=== PATIENT | female | born 1995 | race Caucasian/White ===

== ENCOUNTER 2017-06-10 12:42 | Emergency (ER) | payer OTHER, MEDICAID ==
--- NOTE | 2017-06-10 14:10 | ED Physician Documentation ---
PD HPI BACK PAIN - Stated complaint Stated Complaint: KONG PX-GLF - Chief complaint Chief Complaint: General - History obtained from History obtained from: Patient, Family - History of Present Illness Timing - onset: How many days ago (3) Timing - duration: Days (3) Timing - details: Gradual onset Pain level max: 8 Pain level now: 8 Location: Lower, Left Quality: Pain, Spasm, Aching, Throbbing Associated symptoms: No: Fever, Weakness, Numbness, Incontinent of urine, Unable to urinate, Hematuria, Incontinent of stool Improves with: Rest Worsened by: Movement, Lifting - Additional information Additional information: Tripped and fell down the stairs at work. 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 Pain is left low lumbar, soft tissue. No numbness or tingling. No loss of bowel or bladder control. No IV drug use. No history of similar problems. Review of Systems Constitutional: denies: Fever, Chills GI: denies: Nausea, Vomiting : denies: Dysuria, Frequency, Hesitancy, Unable to Void, Incontinent, Now EGA Neurologic: denies: Focal weakness, Numbness PD PAST MEDICAL HISTORY - Past Medical History Past Medical History: No - Past Surgical History Past Surgical History: No - Present Medications Home Medications: Ambulatory Orders Medication Instructions Recorded Confirmed Cyclobenzaprine [Flexeril] 10 mg PO TID PRN #20 tablet 06/10/17 Hydrocodone/Acetaminophen 1 - 2 each PO Q6H PRN #10 tablet 06/10/17 [Hydrocodon-Acetaminophen 5-325] Meloxicam [Mobic] 7.5 mg PO BID PRN #20 tablet 06/10/17 - Allergies Allergies/Adverse Reactions: Allergies Allergy/AdvReac Type Severity Reaction Status Date / Time No Known Drug Allergies Allergy Verified 06/10/17 12:52 - Social History Does the pt smoke?: Yes Smoking Status: Current every day smoker Does the pt have substance abuse?: No - Immunizations Immunizations are current?: Yes PD ED PE NORMAL - Vitals Vital signs reviewed: Yes - General General: Alert and oriented X 3, No acute distress, Well developed/nourished - HEENT HEENT: Atraumatic, PERRL, Moist mucous membranes - Neck Neck: Supple, no meningeal sign, No bony TTP - Cardiac Cardiac: RRR, Strong equal pulses - Respiratory Respiratory: No respiratory distress, Clear bilaterally - Abdomen Abdomen: Soft, Non tender, Non distended - Back Back: No CVA TTP, No spinal TTP, Other (Paraspinal muscle spasm left lower lumbar. No spinal tenderness over the thoracic, lumbar, sacral or coccyx.) - Derm Derm: Warm and dry - Extremities Extremities: Other (normal bilateral lower extremity patellar and ankle jerk reflexes. Normal great toe extension bilaterally) - Neuro Neuro: Alert and oriented X 3, No motor deficit, No sensory deficit - Psych Psych: Normal mood, Normal affect Results - Vitals Vitals: Vital Signs - 24 hr 06/10/17 06/10/17 12:51 14:26 Temperature 36.4 C L 36.3 C L Heart Rate 89 63 Respiratory 14 18 Rate Blood Pressure 119/69 118/74 O2 Saturation 99 99 Oxygen O2 Source Room air PD MEDICAL DECISION MAKING - ED course Complexity details: considered differential (no cauda equina, no spinal epidural abscess, no fracture, no aortic dissection or evidence of aneursym rupture), d/w patient, d/w family ED course: Patient is a 21-year-old female who presents to the emergency department with left low lumbar spasm and pain. Likely a strain. No bony tenderness to suggest fracture. X-rays held at this time. Will place on pain medication and muscle relaxants for home and follow-up with her PCP. Patient counseled regarding signs and symptoms for which I believe and urgent re-evaluation would be necessary. Patient with good understanding of and agreement to plan and is comfortable going home at this time This document was made in part using voice recognition software. While efforts are made to proofread this document, sound alike and grammatical errors may occur. Departure - Departure Disposition: 01 Home, Self Care Clinical Impression: Lumbar strain Qualifiers: Encounter type: initial encounter Qualified Code(s): S39.012A - Strain of muscle, fascia and tendon of lower back, initial encounter Condition: Good Instructions: ED Sprain Strain Lumbar Follow-Up: Panfilo Coronel DO [Primary Care Provider] - Within 1 week Prescriptions: Cyclobenzaprine [Flexeril] 10 mg PO TID PRN #20 tablet PRN Reason: Spasms Hydrocodone/Acetaminophen [Hydrocodon-Acetaminophen 5-325] 1 - 2 each PO Q6H PRN #10 tablet PRN Reason: pain Meloxicam [Mobic] 7.5 mg PO BID PRN #20 tablet PRN Reason: pain Comments: Continue the medications at home. Return if you worsen. This should improve over the next few days. Do not drink alcohol or drive while on narcotic pain medicine. Note that many narcotic pain relievers also contain tylenol/acetaminophen. Please ensure that your total dose of acetaminophen from all sources does not exceed 3 grams (3000mg) per day. You may constipated on this medication, take a stool softener such as "Colace" twice a day while you are on it. Also recommend a wqzu-[id number]-lwqiicz laxative such as senna or MiraLAX any day that you do not have a bowel movement. If you received narcotic pain medication in the emergency department, do not drive or operate machinery for the next 24 hours. Forms: Activity restrictions Discharge Date/Time: 06/10/17 14:29
[2017-06-10] MEDS: KETOROLAC 60 MG/2 ML VIAL IM STA (14:15)
[2017-06-10] MEDS: CYCLOBENZAPRINE 10 MG TABLET PO STA (14:15)
[2017-06-10] MEDS ORDERED: CYCLOBENZAPRINE 10 MG TABLET PO ONE (14:15)
[2017-06-10] MEDS ORDERED: KETOROLAC 60 MG/2 ML VIAL ONE (14:16)
[2017-06-10 14:27] VITALS: BP 118/74
== END 2017-06-10 14:29 | disposition home or self-care (01) ==
LOC: ED 12:42
DX: S39.012A Strain of muscle, fascia and tendon of lower back, initial encounter (principal); W10.9XXA Fall (on) (from) unspecified stairs and steps, initial encounter; W01.0XXA Fall on same level from slipping, tripping and stumbling without subsequent striking against object, initial encounter; Y99.0 Civilian activity done for income or pay; F17.200 Nicotine dependence, unspecified, uncomplicated
CPT/HCPCS: 1040M; 96372; 99282; 99283

== ENCOUNTER 2017-10-13 13:48 | Emergency (ER) | payer MEDICAID ==
[2017-10-13 13:55] VITALS: BP 136/80
--- NOTE | 2017-10-13 14:35 | ED Physician Documentation ---
PD HPI URI - Stated complaint Stated Complaint: COUGHING BLOOD - Chief complaint Chief Complaint: Heent - History obtained from History obtained from: Patient - History of Present Illness Timing - onset: Other (Sick for about 2 weeks with sore throat, body aches, fevers, and productive cough and developed slight hemoptysis mixed with sputum today.) Review of Systems Constitutional: reports: Chills, Myalgias, Fatigue Ears: denies: Ear pain Nose: reports: Rhinorrhea / runny nose, Congestion Throat: reports: Sore throat PD PAST MEDICAL HISTORY - Past Medical History Past Medical History: No - Past Surgical History Past Surgical History: No - Present Medications Home Medications: Ambulatory Orders Medication Instructions Recorded Confirmed Albuterol Sulfate [Proventil Hfa 1 - 2 puffs IH Q4H PRN #1 10/13/17 Inhaler] [email or web address] Azithromycin [Zithromax] 250 mg PO DAILY #6 tablet 10/13/17 guaiFENesin/CODEINE [Robitussin AC] 5 - 10 ml PO Q6H PRN #120 ml 10/13/17 - Allergies Allergies/Adverse Reactions: Allergies Allergy/AdvReac Type Severity Reaction Status Date / Time lactose Allergy Cramps Verified 10/13/17 13:56 - Social History Does the pt smoke?: Yes Smoking Status: Current every day smoker Does the pt drink ETOH?: No Does the pt have substance abuse?: No - Immunizations Immunizations are current?: Yes - POLST Patient has POLST: No PD ED PE NORMAL - Vitals Vital signs reviewed: Yes - General General: Alert and oriented X 3, No acute distress - HEENT HEENT: PERRL, EOMI, Ears normal, Other (Slight pharyngeal irritation) - Neck Neck: Supple, no meningeal sign, No bony TTP - Cardiac Cardiac: RRR, No murmur - Respiratory Respiratory: No respiratory distress, Clear bilaterally - Abdomen Abdomen: Non tender - Neuro Neuro: Alert and oriented X 3, Normal speech - Psych Psych: Normal mood, Normal affect Results - Vitals Vitals: Vital Signs - 24 hr 10/13/17 13:54 Temperature 36.7 C Heart Rate 110 H Respiratory 20 Rate Blood Pressure 136/80 H O2 Saturation 97 Oxygen O2 Source Room air Departure - Departure Disposition: Home, Self Care Clinical Impression: Bronchitis Condition: Good Record reviewed to determine appropriate education?: Yes Instructions: ED Bronchitis Asthmatic Prescriptions: Albuterol Sulfate [Proventil Hfa Inhaler] 1 - 2 puffs IH Q4H PRN #1 [email or web address] PRN Reason: Cough Azithromycin [Zithromax] 250 mg PO DAILY #6 tablet guaiFENesin/CODEINE [Robitussin AC] 5 - 10 ml PO Q6H PRN #120 ml PRN Reason: Cough Comments: Call your doctor to arrange a follow-up appointment, make the next available appointment. In the interim, return anytime if worse or if new symptoms develop. Your blood pressure was elevated today on check into the emergency department. This does not mean that you have hypertension, it is a common phenomenon to come to the emergency department and have elevated blood pressure. I recommend that you see your primary care physician within the week to have it rechecked when you are feeling better.
== END 2017-10-13 14:42 | disposition home or self-care (01) ==
LOC: ED 13:48
DX: J40 Bronchitis, not specified as acute or chronic (principal); R03.0 Elevated blood-pressure reading, without diagnosis of hypertension; F17.200 Nicotine dependence, unspecified, uncomplicated
CPT/HCPCS: 99283

== ENCOUNTER 2017-11-18 13:45 | Emergency (ER) | payer MEDICAID ==
[2017-11-18 13:56] VITALS: BP 127/76
[2017-11-18 14:03] LABS: BILIRUBIN,URINE NEGATIVE (NEGATIVE); GLUCOSE, URINE (UA) NEGATIVE (NEGATIVE); KETONES,URINE (UA) TRACE mg/dL (NEGATIVE); LEUKOCYTE ESTERASE, URINE NEGATIVE (NEGATIVE); NITRITE,URINE NEGATIVE (NEGATIVE); OCCULT BLOOD,URINE NEGATIVE (NEGATIVE); PROTEIN,URINE NEGATIVE (NEGATIVE); UROBILINOGEN,URINE 0.2 (NORMAL) E.U./dL (NORMAL)
[2017-11-18 14:06] LABS: CLARITY,URINE CLEAR (CLEAR)
[2017-11-18 14:08] LABS: HCG UR QUAL NEGATIVE
[2017-11-18] MEDS ORDERED: DEXAMETHASONE 10 MG/ML VIAL PO STA (14:41)
--- NOTE | 2017-11-18 14:42 | ED Physician Documentation ---
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 She has had similar pain previously but never anything this bad. She has been using a heating pack constantly and she is not getting relief from her pain. She has pain to moving and she has pain radiating down her left leg. She is not having any numbness or tingling or trouble with her bowel or bladder. Review of Systems Constitutional: denies: Fever Eyes: denies: Decreased vision Ears: denies: Ear pain Nose: denies: Congestion Throat: denies: Sore throat Cardiac: denies: Chest pain / pressure Respiratory: denies: Cough GI: denies: Abdominal Pain, Nausea, Vomiting : denies: Dysuria, Frequency Skin: denies: Rash Musculoskeletal: reports: Back pain, Extremity pain (left leg). denies: Neck pain Neurologic: denies: Generalized weakness, Focal weakness, Numbness PD PAST MEDICAL HISTORY - Past Medical History Past Medical History: No - Past Surgical History Past Surgical History: No - Present Medications Home Medications: Ambulatory Orders Medication Instructions Recorded Confirmed Cyclobenzaprine [Flexeril] 10 mg PO TID PRN #20 tablet 11/18/17 HYDROcod/ACETAM 5/325 [[place] 5/325] 1 - 2 ea PO Q6H PRN #15 tablet 11/18/17 - Allergies Allergies/Adverse Reactions: Allergies Allergy/AdvReac Type Severity Reaction Status Date / Time lactose Allergy Cramps Verified 11/18/17 13:56 - Social History Does the pt smoke?: Yes Smoking Status: Current every day smoker Does the pt drink ETOH?: No Does the pt have substance abuse?: No - Immunizations Immunizations are current?: Yes - POLST Patient has POLST: No PD ED PE NORMAL - Vitals Vital signs reviewed: Yes (tachy ) - General General: Alert and oriented X 3, No acute distress, Well developed/nourished, Other (standing favoring the left leg with the leg is full extension and moving slowly. ) - HEENT HEENT: Atraumatic, PERRL - Neck Neck: Supple, no meningeal sign - Respiratory Respiratory: No respiratory distress - Back Back: No CVA TTP, No spinal TTP, Other (There is tenderness to the paraspinous muscles bilaterally at the TL junction.) - Derm Derm: Normal color, Warm and dry, No rash - Extremities Extremities: No deformity, No edema - Neuro Neuro: No motor deficit, No sensory deficit Eye Opening: Spontaneous Motor: Obeys Commands Verbal: Oriented GCS Score: 15 - Psych Psych: Normal mood, Normal affect Results - Vitals Vitals: Vital Signs - 24 hr 11/18/17 13:50 Temperature 36.5 C Heart Rate 102 H Respiratory 16 Rate Blood Pressure 127/76 O2 Saturation 99 Oxygen O2 Source Room air - Labs Labs: Laboratory Tests 11/18/17 13:55 Urine Color YELLOW Urine Clarity CLEAR Urine pH 6.0 Ur Specific [place] >=1.030 H Urine Protein NEGATIVE Urine Glucose (UA) NEGATIVE Urine Ketones TRACE Urine Occult Blood NEGATIVE Urine Nitrite NEGATIVE Urine Bilirubin NEGATIVE Urine Urobilinogen 0.2 (NORMAL) Ur Leukocyte Esterase NEGATIVE Ur Microscopic Review NOT INDICATED Urine Culture Comments NOT INDICATED Urine HCG, Qual NEGATIVE PD MEDICAL DECISION MAKING - ED course Complexity details: considered differential, d/w patient ED course: 22-year-old female with acute back spasm and sciatica has been using a heating pad continuously and has not had relief of her pain. Here in emergency department she is given dexamethasone 10 mg orally I have encouraged her to stop using the heating pack and use ice and stretch to hydrate and we will provide some pain medication and muscle relaxant. Departure - Departure Disposition: 01 Home, Self Care Clinical Impression: Sciatica Qualifiers: Laterality: left Qualified Code(s): M54.32 - Sciatica, left side Condition: Stable Instructions: ED Sciatica Follow-Up: Panfilo Coronel DO [Primary Care Provider] - Prescriptions: Cyclobenzaprine [Flexeril] 10 mg PO TID PRN #20 tablet PRN Reason: Spasms HYDROcod/ACETAM 5/325 [[place] 5/325] 1 - 2 ea PO Q6H PRN #15 tablet PRN Reason: Pain Forms: Activity restrictions
== END 2017-11-18 15:02 | disposition home or self-care (01) ==
LOC: ED 13:45
DX: M54.32 Sciatica, left side (principal); F17.200 Nicotine dependence, unspecified, uncomplicated
CPT/HCPCS: 81001; 81003; 81025; 87086; 99283

== ENCOUNTER 2018-04-05 18:08 | Emergency (ER) | payer MEDICAID ==
[2018-04-05] MEDS ORDERED: diazePAM INJ 5 MG/ML SYRINGE IVP STA (18:46)
--- NOTE | 2018-04-05 18:48 | ED Physician Documentation ---
PD HPI CHEST PAIN - Stated complaint Stated Complaint: CHEST PX - Chief complaint Chief Complaint: Cardiac - History obtained from History obtained from: Patient - History of Present Illness Timing - onset: Today (In the midst of a panic attack she developed substernal chest pressure radiating to the back without shortness of breath. This was about an hour and a half ago. She has panic attacks occasionally but not chest pain like this. She tried Ativan which did not help. She denies any pedal edema or calf pain. No recent travel or personal history of DVT or PE. She has no heart or lung problems. She is a family history of DVT and coronary disease and emphysema, but none of these at such a young age.) Review of Systems Ten Systems: 10 systems reviewed and negative Constitutional: denies: Fever, Chills Cardiac: denies: Palpitations, Pedal edema, Calf pain Respiratory: denies: Dyspnea, Cough, Hemoptysis, Wheezing GI: denies: Abdominal Pain PD PAST MEDICAL HISTORY - Past Medical History Past Medical History: Yes Psych: Depression, Anxiety Musculoskeletal: Scoliosis Other Past Medical History: left torn bicep - Past Surgical History Past Surgical History: No - Present Medications Home Medications: Ambulatory Orders Medication Instructions Recorded Confirmed Cyclobenzaprine [Flexeril] 10 mg PO TID PRN #20 tablet 11/18/17 HYDROcod/ACETAM 5/325 [[place] 5/325] 1 - 2 ea PO Q6H PRN #15 tablet 11/18/17 Doxylamine/Pyridoxine HCl 1 each PO Q6H PRN #20 tablet. 04/05/18 [Adeline Stark 10-10 mg Tablet] - Allergies Allergies/Adverse Reactions: Allergies Allergy/AdvReac Type Severity Reaction Status Date / Time lactose Allergy Cramps Verified 11/18/17 13:56 - Social History Does the pt smoke?: Yes Smoking Status: Current every day smoker Does the pt drink ETOH?: Yes Does the pt have substance abuse?: No - Immunizations Immunizations are current?: Yes - POLST Patient has POLST: No PD ED PE NORMAL - Vitals Vital signs reviewed: Yes - General General: Alert and oriented X 3, Other (She is hyperventilating and tearful) - HEENT HEENT: PERRL, EOMI - Neck Neck: Supple, no meningeal sign, No bony TTP - Cardiac Cardiac: RRR, No murmur - Respiratory Respiratory: No respiratory distress, Clear bilaterally - Abdomen Abdomen: Non tender - Extremities Extremities: No edema, No calf tenderness / cord - Neuro Neuro: Alert and oriented X 3, Normal speech Results - Vitals Vitals: Vital Signs - 24 hr 04/05/18 04/05/18 18:13 19:28 Temperature 36.8 C Heart Rate 113 H 86 Respiratory 18 18 Rate Blood Pressure 129/74 126/70 O2 Saturation 100 97 Oxygen O2 Source Room air - EKG (time done) 1823 Rate: Rate (enter#) (90) Rhythm: NSR Martell: Normal Intervals: Normal [place] QRS: Normal Ischemia: Normal ST segments Computer interpretation: Agree with computer - Labs Labs: Laboratory Tests 04/05/18 04/05/18 04/05/18 18:34 18:34 18:34 WBC 9.6 RBC 4.64 Hgb 13.6 Hct 39.9 MCV 86.2 MCH 29.3 MCHC 34.0 RDW 13.0 Plt Count 289 MPV 6.8 L Neut # (Auto) 5.5 Lymph # (Auto) 3.3 Garrett # (Auto) 0.7 Eos # (Auto) 0.1 Baso # (Auto) 0.1 Absolute Nucleated RBC 0.00 Nucleated RBC % 0.0 D-Dimer < 200.0 L Sodium 137 Potassium 3.4 L Chloride 107 Carbon Dioxide 22 Anion Gap 8.0 BUN 8 Creatinine 0.6 Estimated GFR (MDRD) 125 Glucose 109 H Calcium 9.7 Total Bilirubin 0.6 AST 20 ALT 17 Alkaline Phosphatase 46 Troponin I Total Protein 7.6 Albumin 4.7 Globulin 2.9 Albumin/Globulin Ratio 1.6 Lipase 24 Serum HCG, Qual POSITIVE Urine Color Urine Clarity Urine pH Ur Specific [place] Urine Protein Urine Glucose (UA) Urine Ketones Urine Occult Blood Urine Nitrite Urine Bilirubin Urine Urobilinogen Ur Leukocyte Esterase Ur Microscopic Review Urine Culture Comments Urine Opiates Screen Ur Oxycodone Screen Urine Methadone Screen Ur Propoxyphene Screen Ur Barbiturates Screen Ur Tricyclics Screen Ur Phencyclidine Scrn Ur Amphetamine Screen U Methamphetamines Scrn U Benzodiazepines Scrn Urine Cocaine Screen U Cannabinoids Screen 04/05/18 04/05/18 18:34 19:30 WBC RBC Hgb Hct MCV MCH MCHC RDW Plt Count MPV Neut # (Auto) Lymph # (Auto) Garrett # (Auto) Eos # (Auto) Baso # (Auto) Absolute Nucleated RBC Nucleated RBC % D-Dimer Sodium Potassium Chloride Carbon Dioxide Anion Gap BUN Creatinine Estimated GFR (MDRD) Glucose Calcium Total Bilirubin AST ALT Alkaline Phosphatase Troponin I < 0.04 Total Protein Albumin Globulin Albumin/Globulin Ratio Lipase Serum HCG, Qual Urine Color YELLOW Urine Clarity CLEAR Urine pH >=9.0 H Ur Specific [place] 1.015 Urine Protein NEGATIVE Urine Glucose (UA) NEGATIVE Urine Ketones 15 H Urine Occult Blood NEGATIVE Urine Nitrite NEGATIVE Urine Bilirubin NEGATIVE Urine Urobilinogen 4 H Ur Leukocyte Esterase NEGATIVE Ur Microscopic Review NOT INDICATED Urine Culture Comments NOT INDICATED Urine Opiates Screen NEGATIVE Ur Oxycodone Screen NEGATIVE Urine Methadone Screen NEGATIVE Ur Propoxyphene Screen NEGATIVE Ur Barbiturates Screen NEGATIVE Ur Tricyclics Screen NEGATIVE Ur Phencyclidine Scrn NEGATIVE Ur Amphetamine Screen NEGATIVE U Methamphetamines Scrn NEGATIVE U Benzodiazepines Scrn NEGATIVE Urine Cocaine Screen NEGATIVE U Cannabinoids Screen POSITIVE H - Rads (name of study) 2v chest Radiology: EMP read contemporaneously (normal) PD MEDICAL DECISION MAKING - ED course ED course: 22-year-old woman presents with chest pain that seems like anterior chest wall pain in the setting of panic attack. She was given IV Valium here which helped her anxiety did not really change the pain but she did have improvement with Toradol. She has a somewhat surprisingly positive test here, was counseled about this but other than nausea she has no symptoms directly referable to the itself i.e. no cramping or bleeding or pelvic pain. - Sepsis Event Vital Signs: Vital Signs - 24 hr 04/05/18 04/05/18 18:13 19:28 Temperature 36.8 C Heart Rate 113 H 86 Respiratory 18 18 Rate Blood Pressure 129/74 126/70 O2 Saturation 100 97 Oxygen O2 Source Room air Departure - Departure Disposition: 01 Home, Self Care Clinical Impression: Chest wall pain Qualifiers: Weeks of gestation: less than 8 weeks Qualified Code(s): Z3A.01 - Less than 8 weeks gestation of Condition: Good Record reviewed to determine appropriate education?: Yes Instructions: ED Contusion Chest Wall, ED Care Follow-Up: [facility] [Provider Group] Prescriptions: Doxylamine/Pyridoxine HCl [Adeline Stark 10-10 mg Tablet] 1 each PO Q6H PRN #20 tablet.dr PRN Reason: Nausea / Vomiting Comments: Continue your vitamins and try to quit smoking. Follow-up with the OB is listed on this form for routine care. Return if worsening or if new symptoms develop. Tylenol as needed for pain.
[2018-04-05 18:58] LABS: BASOPHILS # (AUTO) 0.1 10^3/uL (0.0-0.1); BASOPHILS % (AUTO) 0.9 %; EOSINOPHILS # (AUTO) 0.1 10^3/uL (0.0-0.7); EOSINOPHILS % (AUTO) 0.6 %; HGB - HEMOGLOBIN 13.6 g/dL (12.0-16.0); LYMPHOCYTES # (AUTO) 3.3 10^3/uL (1.5-3.5); LYMPHOCYTES % (AUTO) 34.4 %; MEAN CORPUSCULAR HEMOGLOBIN 29.3 pg (27.0-31.0); MEAN CORPUSCULAR VOLUME 86.2 fL (81.0-99.0); MEAN PLATELET VOLUME 6.8 fL (7.9-10.8); MONOCYTES # (AUTO) 0.7 10^3/uL (0.0-1.0); MONOCYTES % (AUTO) 7.2 %; NEUTROPHILS # (AUTO) 5.5 10^3/uL (1.5-6.6); NEUTROPHILS % (AUTO) 56.9 %; PLT - PLATELET COUNT 289 10^3/uL (130-450); RED BLOOD COUNT 4.64 10^6/uL (4.20-5.40); WHITE BLOOD COUNT 9.6 x10^3/uL (4.8-10.8)
[2018-04-05 19:07] LABS: ALBUMIN 4.7 g/dL (3.2-5.5); ALBUMIN/GLOBULIN RATIO 1.6 (1.0-2.2); ALKALINE PHOSPHATASE 46 IU/L (42-121); ALT ALANINE AMINOTRANSFERASE 17 IU/L (10-60); AST ASPARTATE AMINOTRANSFERASE 20 IU/L (10-42); BILIRUBIN,TOTAL 0.6 mg/dL (0.2-1.0); BUN - BLOOD UREA NITROGEN 8 mg/dL (6-20); CALCIUM 9.7 mg/dL (8.5-10.3); CARBON DIOXIDE - CO2 22 mmol/L (21-32); CHLORIDE 107 mmol/L (101-111); CREATININE 0.6 mg/dL (0.4-1.0); GFR - MDRD 125 (>89); GLUCOSE 109 mg/dL (70-100); LIPASE 24 U/L (22-51); SODIUM 137 mmol/L (135-145); TOTAL PROTEIN 7.6 g/dL (6.7-8.2)
--- NOTE | 2018-04-05 19:29 | XRAY Report ---
Procedure Date: 04/05/2018 Accession Number: [id number] / [id number] Procedure: XR - Chest 2 View X-Ray CPT Code: 42367 FULL RESULT: EXAM: CHEST RADIOGRAPHY. EXAM DATE: 04/05/2018 07:17 PM. CLINICAL HISTORY: Chest pain. COMPARISON: None. TECHNIQUE: 2 views. FINDINGS: Lungs/Pleura: No focal opacities evident. No pleural effusion. No pneumothorax. Normal volumes. Bronchial wall thickening noted. Mediastinum: Heart and mediastinal contours are unremarkable. Other: None. IMPRESSION: 1. Nonspecific bronchial wall thickening could represent bronchitis or reactive airways disease. 2. No consolidation, effusions or pneumothorax. RADIA
[2018-04-05 19:33] LABS: MUDS CUTOFF CONCENTRATIONS CUTOFF CONC BELOW:
[2018-04-05 19:39] LABS: BILIRUBIN,URINE NEGATIVE (NEGATIVE); GLUCOSE, URINE (UA) NEGATIVE (NEGATIVE); KETONES,URINE (UA) 15 mg/dL (NEGATIVE); LEUKOCYTE ESTERASE, URINE NEGATIVE (NEGATIVE); NITRITE,URINE NEGATIVE (NEGATIVE); OCCULT BLOOD,URINE NEGATIVE (NEGATIVE); PH,URINE >=9.0 PH (5.0-7.5); PROTEIN,URINE NEGATIVE (NEGATIVE); UROBILINOGEN,URINE 4 E.U./dL (NORMAL)
[2018-04-05] MEDS ORDERED: KETOROLAC 60 MG/2 ML VIAL IVP STA (19:40)
[2018-04-05 19:43] LABS: CLARITY,URINE CLEAR (CLEAR)
[2018-04-05 19:48] LABS: AMPHETAMINE SCREEN,URINE NEGATIVE (NEGATIVE); BENZODIAZEPINES SCREEN, URINE NEGATIVE (NEGATIVE); COCAINE SCREEN URINE NEGATIVE (NEGATIVE); METHADONE SCREEN, URINE NEGATIVE (NEGATIVE); METHAMPHETAMINES SCREEN, URINE NEGATIVE (NEGATIVE); OPIATE SCREEN, URINE NEGATIVE (NEGATIVE); OXYCODONE SCREEN, URINE NEGATIVE (NEGATIVE); PROPOXYPHENE SCREEN, URINE NEGATIVE (NEGATIVE); TRICYCLIC ANTIDEPRESSANT,URINE NEGATIVE (NEGATIVE)
[2018-04-05 19:55] LABS: HCG,QUALITATIVE BLOOD POSITIVE
[2018-04-05 20:09] VITALS: BP 126/84
== END 2018-04-05 20:20 | disposition home or self-care (01) ==
LOC: ED 18:08
DX: R07.89 Other chest pain (principal); F32.9 Major depressive disorder, single episode, unspecified; F41.9 Anxiety disorder, unspecified; O26.891 Other specified pregnancy related conditions, first trimester; R11.0 Nausea; Z3A.01 Less than 8 weeks gestation of pregnancy
CPT/HCPCS: 36415; 71046; 80053; 80306; 81001; 81003; 83690; 84484; 84703; 85025; 85379; 87086; 93005; 96374; 96375; 99283; 99284

== ENCOUNTER 2018-04-13 20:54 | Emergency (ER) | payer MEDICAID ==
[2018-04-13] MEDS ORDERED: METOCLOPRAMIDE 10 MG/2 ML VIAL IVP STA (21:17)
[2018-04-13] MEDS ORDERED: ACETAMINOPHEN 500 MG TABLET PO STA (21:17)
[2018-04-13] MEDS ORDERED: SODIUM CHLORIDE 0.9% 1,000 ML IV ONE (21:17)
--- NOTE | 2018-04-13 21:23 | ED Physician Documentation ---
History of Present Illness - Stated complaint Stated Complaint: 7 WKS/PX ALL OVER - Chief complaint Chief Complaint: Abd Pain - History obtained from History obtained from: Patient - Additonal information Additional information: 22-year-old female 1 para 0 at roughly 7 weeks presents the emergency department with increasing body wide pain, insomnia, pelvic pain and general weakness over the past 5 days which has worsened. The patient denies any focal area of discomfort. The patient reports nausea. No improvement with over-the- counter therapy. The patient denies dysuria, vaginal discharge or vaginal bleeding. No other associated symptoms. No triggering factors Review of Systems Constitutional: reports: Fatigue. 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 Psych: Depression, Anxiety Musculoskeletal: Scoliosis - Past Surgical History Past Surgical History: No - Present Medications Home Medications: Ambulatory Orders Medication Instructions Recorded Confirmed Cyclobenzaprine [Flexeril] 10 mg PO TID PRN #20 tablet 11/18/17 LORazepam [Lorazepam] 0.5 mg PO 04/13/18 Metoclopramide [Reglan] 10 mg PO Q6H PRN #30 tablet 04/13/18 Sertraline [Zoloft] 50 mg PO DAILY 04/13/18 04/13/18 - Allergies Allergies/Adverse Reactions: Allergies Allergy/AdvReac Type Severity Reaction Status Date / Time lactose Allergy Cramps Verified 04/13/18 21:03 - Social History Does the pt smoke?: Yes Smoking Status: Current every day smoker Does the pt drink ETOH?: Yes Does the pt have substance abuse?: No - Immunizations Immunizations are current?: Yes - POLST Patient has POLST: No PD ED PE NORMAL - General General: Alert and oriented X 3, Well developed/nourished - HEENT HEENT: Atraumatic, PERRL, EOMI, Ears normal, Moist mucous membranes - Neck Neck: Supple, no meningeal sign - Cardiac Cardiac: RRR, Strong equal pulses - Respiratory Respiratory: No respiratory distress, Clear bilaterally - Abdomen Abdomen: Normal bowel sounds, Non tender, Non distended - Back Back: No CVA TTP - Extremities Extremities: No deformity, No edema - Neuro Neuro: Alert and oriented X 3, No motor deficit - Psych Psych: Normal mood Results - Vitals Vitals: Vital Signs - 24 hr 04/13/18 21:01 Temperature 37.0 C Heart Rate 79 Respiratory 14 Rate Blood Pressure 115/73 O2 Saturation 100 Oxygen O2 Source Room air - Labs Labs: Laboratory Tests 04/13/18 04/13/18 04/13/18 21:50 22:45 22:45 WBC 9.9 RBC 4.46 Hgb 13.1 Hct 39.2 MCV 88.0 MCH 29.4 MCHC 33.4 RDW 13.4 Plt Count 277 MPV 7.2 L Neut # (Auto) 5.7 Lymph # (Auto) 3.2 Long # (Auto) 0.7 Eos # (Auto) 0.2 Baso # (Auto) 0.1 Absolute Nucleated RBC 0.00 Nucleated RBC % 0.0 Sodium Potassium Chloride Carbon Dioxide Anion Gap BUN Creatinine Estimated GFR (MDRD) Glucose Calcium Total Bilirubin AST ALT Alkaline Phosphatase CK-MB (CK-2) Total Protein Albumin Globulin Albumin/Globulin Ratio Lipase Serum HCG, Qual Urine Color YELLOW Urine Clarity CLEAR Urine pH 6.0 Ur Specific [place] 1.020 Urine Protein NEGATIVE Urine Glucose (UA) NEGATIVE Urine Ketones NEGATIVE Urine Occult Blood NEGATIVE Urine Nitrite NEGATIVE Urine Bilirubin NEGATIVE Urine Urobilinogen 0.2 (NORMAL) Ur Leukocyte Esterase NEGATIVE Ur Microscopic Review NOT INDICATED Urine Culture Comments NOT INDICATED Blood Type A POSITIVE 04/13/18 04/13/18 04/13/18 22:45 22:45 22:45 WBC RBC Hgb Hct MCV MCH MCHC RDW Plt Count MPV Neut # (Auto) Lymph # (Auto) Long # (Auto) Eos # (Auto) Baso # (Auto) Absolute Nucleated RBC Nucleated RBC % Sodium 135 Potassium 4.0 Chloride 101 Carbon Dioxide 25 Anion Gap 9.0 BUN 11 Creatinine 0.6 Estimated GFR (MDRD) 125 Glucose 100 Calcium 9.7 Total Bilirubin 0.4 AST 16 ALT 12 Alkaline Phosphatase 43 CK-MB (CK-2) 0.6 Total Protein 7.3 Albumin 4.2 Globulin 3.1 Albumin/Globulin Ratio 1.4 Lipase 34 Serum HCG, Qual POSITIVE Urine Color Urine Clarity Urine pH Ur Specific [place] Urine Protein Urine Glucose (UA) Urine Ketones Urine Occult Blood Urine Nitrite Urine Bilirubin Urine Urobilinogen Ur Leukocyte Esterase Ur Microscopic Review Urine Culture Comments Blood Type - Rads (name of study) US Radiology: See rad report PD MEDICAL DECISION MAKING - ED course Complexity details: other (On reevaluation the patient is resting comfortably and her symptoms have completely resolved and she feels much improved. The patient's workup does not reveal any acute etiology that would necessitate admission to the hospital or acute surgical consultation. The patient appears appropriate for discharge home and further workup as an outpatient. I discussed with her the findings on her workup and incidental findings. 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 I discussed warning signs and recommended returning to the emergency department immediately for worsening or any concerns) - Sepsis Event Vital Signs: Vital Signs - 24 hr 04/13/18 21:01 Temperature 37.0 C Heart Rate 79 Respiratory 14 Rate Blood Pressure 115/73 O2 Saturation 100 Oxygen O2 Source Room air Departure - Departure Disposition: Home, Self Care Clinical Impression: Abdominal pain affecting Ovarian cyst Qualifiers: Laterality: bilateral Qualified Code(s): N83.201 - Unspecified ovarian cyst, right side Condition: Good Instructions: Care , Cysts Ovarian, ED Pelvic Pain [facility] Follow-Up: [facility] [Provider Group] - Within 1 week Prescriptions: Metoclopramide [Reglan] 10 mg PO Q6H PRN #30 tablet PRN Reason: Nausea / Vomiting Comments: Is return to the emergency department for worsening symptoms or new concerns
[2018-04-13 22:08] LABS: BILIRUBIN,URINE NEGATIVE (NEGATIVE); GLUCOSE, URINE (UA) NEGATIVE (NEGATIVE); KETONES,URINE (UA) NEGATIVE (NEGATIVE); LEUKOCYTE ESTERASE, URINE NEGATIVE (NEGATIVE); NITRITE,URINE NEGATIVE (NEGATIVE); OCCULT BLOOD,URINE NEGATIVE (NEGATIVE); PROTEIN,URINE NEGATIVE (NEGATIVE); UROBILINOGEN,URINE 0.2 (NORMAL) E.U./dL (NORMAL)
[2018-04-13 22:10] LABS: CLARITY,URINE CLEAR (CLEAR)
[2018-04-13 22:56] LABS: BASOPHILS # (AUTO) 0.1 10^3/uL (0.0-0.1); BASOPHILS % (AUTO) 0.6 %; EOSINOPHILS # (AUTO) 0.2 10^3/uL (0.0-0.7); HGB - HEMOGLOBIN 13.1 g/dL (12.0-16.0); LYMPHOCYTES # (AUTO) 3.2 10^3/uL (1.5-3.5); LYMPHOCYTES % (AUTO) 32.1 %; MEAN CORPUSCULAR HEMOGLOBIN 29.4 pg (27.0-31.0); MEAN CORPUSCULAR HGB CONC 33.4 g/dL (32.0-36.0); MEAN PLATELET VOLUME 7.2 fL (7.9-10.8); MONOCYTES # (AUTO) 0.7 10^3/uL (0.0-1.0); MONOCYTES % (AUTO) 7.5 %; NEUTROPHILS # (AUTO) 5.7 10^3/uL (1.5-6.6); NEUTROPHILS % (AUTO) 57.8 %; PLT - PLATELET COUNT 277 10^3/uL (130-450); RED BLOOD COUNT 4.46 10^6/uL (4.20-5.40); RED CELL DISTRIBUTION WIDTH 13.4 % (12.0-15.0); WHITE BLOOD COUNT 9.9 x10^3/uL (4.8-10.8)
[2018-04-13 23:17] LABS: ALBUMIN 4.2 g/dL (3.2-5.5); ALBUMIN/GLOBULIN RATIO 1.4 (1.0-2.2); BILIRUBIN,TOTAL 0.4 mg/dL (0.2-1.0); CALCIUM 9.7 mg/dL (8.5-10.3); CREATININE 0.6 mg/dL (0.4-1.0); TOTAL PROTEIN 7.3 g/dL (6.7-8.2)
--- NOTE | 2018-04-13 23:24 | Ultrasound Report ---
Procedure Date: 04/13/2018 Accession Number: [id number] / [id number] Procedure: US - OB First Trimester CPT Code: FULL RESULT: EXAM: FIRST TRIMESTER OBSTETRIC ULTRASOUND (Less than 11 weeks) EXAM DATE: 04/13/2018 09:48 PM. CLINICAL HISTORY: with pain. LMP: 02/23/2018. COMPARISONS: None. TECHNIQUE: Transabdominal and transvaginal ultrasound examination with static image documentation. CLINICAL DATES: EGA 7 weeks 0 days with REUBEN 12/28/2018 based on LMP. ASSESSMENT: Dichorionic, diamniotic twin . Twin A Location: Right posterior. Gestational Sac: Single intrauterine. Embryo: CRL (crown-rump length) 4.2 mm = 6 weeks 1 day. Cardiac activity: 114 beats per minute. Yolk sac: 2.8 mm. Amniotic fluid: Not accurately assessed at this gestational age. Early placenta: Not visible at this gestational age. Twin B: Location: Left anterior. Gestational Sac: Single intrauterine. Embryo: CRL (crown-rump length) 3.3 mm = 6 weeks 0 days. Cardiac activity: 133 beats per minute. Yolk sac: 2.3 mm. Amniotic fluid: Not accurately assessed at this gestational age. Early placenta: Not visible at this gestational age. Other: Small perigestational hemorrhage inferior and to the left of the gestational sac. MATERNAL STRUCTURES: Uterus: Anteverted. Unremarkable. Cervix: Closed. Right Ovary/Adnexa: Unremarkable. The ovary measures 3.4 x 1.5 x 1.4 cm, volume 2.8 cc. Left Ovary/Adnexa: Unremarkable. The ovary measures 2.2 x 2.3 x 2.3 cm, volume 6 cc. Complex debris-containing 1.3 x 1.3 x 1.8 cm left ovarian cyst with peripheral flow. Free Fluid: None. Other: None. IMPRESSION: 1. Dichorionic, diamniotic twin . heart activity is noted for both. Twin A has an estimated gestational age of 6 weeks 1 day which is concordant with the estimated gestational age based on LMP. Twin B has an estimated gestational age of 6 weeks 0 days which is concordant with the estimated gestational age based on LMP. 2. Assigned dating is REUBEN 11/30/2018 based on LMP. 3. Small perigestational hemorrhage. 4. Both ovaries and adnexa are normal. Left ovarian 1.8 cm corpus luteum. RADIA
[2018-04-13 23:38] LABS: HCG,QUALITATIVE BLOOD POSITIVE
[2018-04-14 00:36] VITALS: BP 116/74
== END 2018-04-14 00:49 | disposition home or self-care (01) ==
LOC: ED 20:54
DX: O34.81 Maternal care for other abnormalities of pelvic organs, first trimester (principal); N83.201 Unspecified ovarian cyst, right side; O99.331 Smoking (tobacco) complicating pregnancy, first trimester; Z3A.01 Less than 8 weeks gestation of pregnancy
CPT/HCPCS: 36415; 76801; 76817; 80053; 81003; 82553; 83690; 84703; 85025; 86900; 86901; 87491; 87591; 96361; 96374; 99283; A9270; J2765; 81001; 87086

== ENCOUNTER 2018-04-17 21:04 | Emergency (ER) | payer MEDICAID ==
[2018-04-17] MEDS ORDERED: diphenhydrAMINE 25 MG CAPSULE PO STA (21:27)
[2018-04-17 21:31] LABS: BILIRUBIN,URINE NEGATIVE (NEGATIVE); GLUCOSE, URINE (UA) NEGATIVE (NEGATIVE); KETONES,URINE (UA) NEGATIVE (NEGATIVE); LEUKOCYTE ESTERASE, URINE NEGATIVE (NEGATIVE); NITRITE,URINE NEGATIVE (NEGATIVE); OCCULT BLOOD,URINE NEGATIVE (NEGATIVE); PH,URINE 7.5 PH (5.0-7.5); PROTEIN,URINE NEGATIVE (NEGATIVE); UROBILINOGEN,URINE 0.2 (NORMAL) E.U./dL (NORMAL)
[2018-04-17 21:40] LABS: BACTERIA,URINE None Seen /HPF (None Seen); CLARITY,URINE CLEAR (CLEAR); RBC,URINE None Seen /HPF (0-5); SQUAMOUS EPITHELIAL CELL,UR RARE Squamous (<= Few)
--- NOTE | 2018-04-17 21:42 | ED Physician Documentation ---
PD HPI MHE - Stated complaint Stated Complaint: ANXIETY/6WK OB - Chief complaint Chief Complaint: MHE - History obtained from History obtained from: Patient, Family - History of Present Illness Primary symptom: Anxiety Timing - onset: Today Contributing factors: Off meds, Other Similar symptoms before: Work up / diagnostics Recently seen: Emergency Dept - Additional information Additional information: Patient is a 22 year old female approximately 6 weeks by dates who is presenting to the emergency department for anxiety and a panic attack. According to patient and friend patient's old roommates and best friend got kicked out of the house and patient had to take them to a hotel. this set off the patient's panic attack. patient normally would take a lorazapam but due to the she can't. 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 Psych: Depression, Anxiety Musculoskeletal: Scoliosis - Past Surgical History Past Surgical History: No - Present Medications Home Medications: Ambulatory Orders Medication Instructions Recorded Confirmed No Known Home Medications [No 04/17/18 04/17/18 Known Home Medications] - Allergies Allergies/Adverse Reactions: Allergies Allergy/AdvReac Type Severity Reaction Status Date / Time lactose Allergy Cramps Verified 04/17/18 21:13 - Social History Does the pt smoke?: Yes Smoking Status: Current every day smoker Does the pt drink ETOH?: Yes Does the pt have substance abuse?: No - Immunizations Immunizations are current?: Yes - POLST Patient has POLST: No PD ED PE NORMAL - Vitals Vital signs reviewed: Yes - HEENT HEENT: Atraumatic - Respiratory Respiratory: No respiratory distress - Abdomen Abdomen: Non distended - Derm Derm: Normal color - Extremities Extremities: No deformity - Neuro Neuro: Alert and oriented X 3, No motor deficit, Normal speech PD ED PE EXPANDED - General General: Alert, Anxious - Psych Psych: Tearful, Anxious Results - Vitals Vitals: Vital Signs - 24 hr 04/17/18 21:12 Temperature 36.8 C Heart Rate 115 H Respiratory 18 Rate Blood Pressure 137/83 H O2 Saturation 100 Oxygen O2 Source Room air - Labs Labs: Laboratory Tests 04/17/18 21:27 Urine Color YELLOW Urine Clarity CLEAR Urine pH 7.5 Ur Specific [place] 1.010 Urine Protein NEGATIVE Urine Glucose (UA) NEGATIVE Urine Ketones NEGATIVE Urine Occult Blood NEGATIVE Urine Nitrite NEGATIVE Urine Bilirubin NEGATIVE Urine Urobilinogen 0.2 (NORMAL) Ur Leukocyte Esterase NEGATIVE Urine RBC None Seen Urine WBC 0-3 Ur Squamous Epith Cells RARE Squamous Urine Bacteria None Seen Urine Culture Comments NOT INDICATED PD MEDICAL DECISION MAKING - ED course Complexity details: reviewed old records, reviewed results, re-evaluated patient , considered differential, d/w patient ED course: patient was seen and examined at bedside. patient was anxious and tearful. urine was collected and patient was treated with benadryl. Upon re-evaluation patient was calm and cooperative. Urinalysis was within normal limits. A lengthy discussion was had with the patient and her partner. All of her questions were answered. Patient required no further work up and was stable for discharge with outpatient follow up. - Sepsis Event Vital Signs: Vital Signs - 24 hr 04/17/18 21:12 Temperature 36.8 C Heart Rate 115 H Respiratory 18 Rate Blood Pressure 137/83 H O2 Saturation 100 Oxygen O2 Source Room air Departure - Departure Disposition: Home, Self Care Clinical Impression: Anxiety Condition: Good Instructions: ED Panic Attack Follow-Up: Pricilla Caceres DO [Provider Admit Priv/Credential] - Comments: Your diagnostics today were within normal limits. there were no significant abnormalities on your urinalysis. During your you will be limited on what you can take for panic attacks. the best things will be exercise and talking with people. you can also try breathing exercises and yoga. If you need to take an occasional benadryl that it ok. you should return to the emergency department for vaginal bleeding, vaginal discharge, chest pain or shortness of breath.
[2018-04-17 22:22] VITALS: BP 101/54
== END 2018-04-17 22:22 | disposition home or self-care (01) ==
LOC: ED 21:04
DX: O99.341 Other mental disorders complicating pregnancy, first trimester (principal); F41.9 Anxiety disorder, unspecified; O99.331 Smoking (tobacco) complicating pregnancy, first trimester; Z3A.01 Less than 8 weeks gestation of pregnancy
CPT/HCPCS: 81001; 99283; A9270; 87086

== ENCOUNTER 2018-05-04 15:27 | Emergency (ER) | payer MEDICAID ==
[2018-05-04 15:33] VITALS: BP 110/61
== END 2018-05-04 16:12 | disposition left against medical advice (07) ==
LOC: ED 15:27
DX: Z53.21 Procedure and treatment not carried out due to patient leaving prior to being seen by health care provider (principal)

== ENCOUNTER 2018-05-08 14:22 | Outpatient (CLI) | payer MEDICAID ==
[2018-05-08 15:11] LABS: BILIRUBIN,URINE NEGATIVE (NEGATIVE); GLUCOSE, URINE (UA) NEGATIVE (NEGATIVE); KETONES,URINE (UA) NEGATIVE (NEGATIVE); LEUKOCYTE ESTERASE, URINE NEGATIVE (NEGATIVE); MUDS CUTOFF CONCENTRATIONS CUTOFF CONC BELOW:; NITRITE,URINE NEGATIVE (NEGATIVE); OCCULT BLOOD,URINE TRACE-INTA (NEGATIVE); PH,URINE 5.5 PH (5.0-7.5); PROTEIN,URINE NEGATIVE (NEGATIVE); UROBILINOGEN,URINE 2 E.U./dL (NORMAL)
[2018-05-08 15:12] LABS: CLARITY,URINE CLEAR (CLEAR)
[2018-05-08 15:17] LABS: BASOPHILS # (AUTO) 0.1 10^3/uL (0.0-0.1); BASOPHILS % (AUTO) 1.3 %; EOSINOPHILS # (AUTO) 0.1 10^3/uL (0.0-0.7); EOSINOPHILS % (AUTO) 0.8 %; LYMPHOCYTES # (AUTO) 1.6 10^3/uL (1.5-3.5); LYMPHOCYTES % (AUTO) 22.1 %; MEAN CORPUSCULAR HGB CONC 34.3 g/dL (32.0-36.0); MEAN CORPUSCULAR VOLUME 84.6 fL (81.0-99.0); MEAN PLATELET VOLUME 7.1 fL (7.9-10.8); MONOCYTES # (AUTO) 0.7 10^3/uL (0.0-1.0); MONOCYTES % (AUTO) 9.3 %; NEUTROPHILS # (AUTO) 4.8 10^3/uL (1.5-6.6); NEUTROPHILS % (AUTO) 66.5 %; PLT - PLATELET COUNT 241 10^3/uL (130-450); RED BLOOD COUNT 4.14 10^6/uL (4.20-5.40); RED CELL DISTRIBUTION WIDTH 12.6 % (12.0-15.0); WHITE BLOOD COUNT 7.3 x10^3/uL (4.8-10.8)
[2018-05-08 15:25] LABS: AMPHETAMINE SCREEN,URINE NEGATIVE (NEGATIVE); BENZODIAZEPINES SCREEN, URINE NEGATIVE (NEGATIVE); COCAINE SCREEN URINE NEGATIVE (NEGATIVE); METHADONE SCREEN, URINE NEGATIVE (NEGATIVE); METHAMPHETAMINES SCREEN, URINE NEGATIVE (NEGATIVE); OPIATE SCREEN, URINE NEGATIVE (NEGATIVE); OXYCODONE SCREEN, URINE NEGATIVE (NEGATIVE); PROPOXYPHENE SCREEN, URINE NEGATIVE (NEGATIVE); TRICYCLIC ANTIDEPRESSANT,URINE NEGATIVE (NEGATIVE)
[2018-05-08 15:33] LABS: BACTERIA,URINE Many /HPF (None Seen); MUCUS,URINE Few Strands; RBC,URINE 0-5 /HPF (0-5); SQUAMOUS EPITHELIAL CELL,UR MANY Squamous (<= Few)
[2018-05-08 16:24] LABS: FREE T3 5.79 pg/mL (2.5-3.9)
[2018-05-08 16:26] LABS: THYROID STIMULATING HORMONE < 0.08 uIU/mL (0.34-5.60)
[2018-05-08 16:28] LABS: FREE T4 (FREE THYROXINE) 1.56 ng/dL (0.58-1.64)
[2018-05-09 12:21] LABS: HIV AG/AB 4TH GEN NON-REACTIVE (NON-REACTIVE)
[2018-05-09 14:06] LABS: HEPATITIS B SURFACE ANTIGEN NON-REACTIVE (NON-REACTIVE)
[2018-05-09 15:21] LABS: HEPATITIS C ANTIBODY NON-REACTIVE (NON-REACTIVE)
== END 2018-05-08 14:23 | disposition home or self-care (01) ==
LOC: LAB 14:22
PROVIDERS: ATTEND Obstetrics & Gynecology
DX: Z36.9 Encounter for antenatal screening, unspecified (principal)
CPT/HCPCS: 36415; 80306; 81001; 81599; 84439; 84443; 84481; 85025; 86762; 86803; 86850; 86900; 86901; 87340; 87389

== ENCOUNTER 2018-05-27 17:27 | Emergency (ER) | payer MEDICAID ==
--- NOTE | 2018-05-27 18:47 | ED Physician Documentation ---
History of Present Illness - Stated complaint Stated Complaint: N/V/D 13 WKS PREG WITH TWINS - Chief complaint Chief Complaint: Abd Pain - History obtained from History obtained from: Patient, Family - History of Present Illness Pain level max: 4 Pain level now: 3 Improved by: nothing Worsened by: nothing - Additonal information Additional information: Patient is a 22-year-old female, 1 para 0 who presents to the emergency department with left lower quadrant abdominal pain. She is approximately 11 weeks currently with twins. No vaginal bleeding or discharge. She also has had vomiting throughout the and feels dehydrated. Pain is described as sharp and occasionally cramping. 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 Psych: Depression, Anxiety Musculoskeletal: Scoliosis - Past Surgical History Past Surgical History: No - Present Medications Home Medications: Ambulatory Orders Medication Instructions Recorded Confirmed Pnv95/Ferrous Fumarate/FA 1 tab PO DAILY 05/04/18 05/27/18 [ Formula Tablet] Metoclopramide [Reglan] 10 mg PO Q6H PRN #30 tablet 05/27/18 - Allergies Allergies/Adverse Reactions: Allergies Allergy/AdvReac Type Severity Reaction Status Date / Time lactose Allergy Cramps Verified 05/27/18 17:46 - Social History Does the pt smoke?: Yes Smoking Status: Current every day smoker Does the pt drink ETOH?: Yes Does the pt have substance abuse?: No - Immunizations Immunizations are current?: Yes - POLST Patient has POLST: No PD ED PE NORMAL - Vitals Vital signs reviewed: Yes - General General: Alert and oriented X 3, No acute distress - HEENT HEENT: Moist mucous membranes - Neck Neck: Supple, no meningeal sign - Cardiac Cardiac: RRR - Respiratory Respiratory: No respiratory distress, Clear bilaterally - Abdomen Abdomen: Soft, Non tender, Non distended - Back Back: No CVA TTP, No spinal TTP - Derm Derm: Warm and dry - Extremities Extremities: No edema - Neuro Neuro: Alert and oriented X 3 - Psych Psych: Normal mood, Normal affect Results - Vitals Vitals: Vital Signs - 24 hr 05/27/18 05/27/18 17:45 21:05 Temperature 36.8 C 36.3 C L Heart Rate 97 88 Respiratory 18 18 Rate Blood Pressure 127/80 108/62 O2 Saturation 99 99 Oxygen O2 Source Room air - Labs Labs: Laboratory Tests 05/27/18 05/27/18 05/27/18 18:42 18:42 20:45 WBC 9.6 RBC 3.99 L Hgb 11.6 L Hct 33.4 L MCV 83.6 MCH 29.0 MCHC 34.7 RDW 12.4 Plt Count 248 MPV 6.8 L Neut # (Auto) 6.6 Lymph # (Auto) 2.1 [place] # (Auto) 0.8 Eos # (Auto) 0.0 Baso # (Auto) 0.1 Absolute Nucleated RBC 0.00 Nucleated RBC % 0.0 Sodium 135 Potassium 3.7 Chloride 103 Carbon Dioxide 25 Anion Gap 7.0 BUN 10 Creatinine 0.4 Estimated GFR (MDRD) 200 Glucose 79 Calcium 9.4 Total Bilirubin 0.7 AST 22 ALT 28 Alkaline Phosphatase 38 L Total Protein 6.9 Albumin 3.8 Globulin 3.1 Albumin/Globulin Ratio 1.2 Lipase 36 Urine Color YELLOW Urine Clarity CLEAR Urine pH 6.0 Ur Specific [place] >=1.030 H Urine Protein TRACE Urine Glucose (UA) NEGATIVE Urine Ketones 40 H Urine Occult Blood NEGATIVE Urine Nitrite NEGATIVE Urine Bilirubin NEGATIVE Urine Urobilinogen 1 (NORMAL) Ur Leukocyte Esterase NEGATIVE Ur Microscopic Review NOT INDICATED Urine Culture Comments NOT INDICATED PD MEDICAL DECISION MAKING - ED course Complexity details: reviewed results, re-evaluated patient, considered differential, d/w patient ED course: Patient is a 22-year-old female, 1 para 0 who is currently with twins. Bedside ultrasound reveals 2 intrauterine pregnancies. Twin A has a heart rate of approximately 156 bpm and good movement. Twin B has a heart rate of approximately 147 bpm and good movement. Images shown to the patient. Feels better after IV fluids and Reglan. Tolerating p.o. without difficulty. Abdomen remained soft, nontender nondistended on serial exam. Will have her follow-up with her OB for further care. Patient counseled regarding signs and symptoms for which I believe and urgent re-evaluation would be necessary. Patient with good understanding of and agreement to plan and is comfortable going home at this time This document was made in part using voice recognition software. While efforts are made to proofread this document, sound alike and grammatical errors may occur. - Sepsis Event Vital Signs: Vital Signs - 24 hr 05/27/18 05/27/18 17:45 21:05 Temperature 36.8 C 36.3 C L Heart Rate 97 88 Respiratory 18 18 Rate Blood Pressure 127/80 108/62 O2 Saturation 99 99 Oxygen O2 Source Room air Departure - Departure Disposition: 01 Home, Self Care Clinical Impression: Dehydration Vomiting Qualifiers: Vomiting type: unspecified Vomiting Intractability: non-intractable Nausea presence: with nausea Qualified Code(s): R11.2 - Nausea with vomiting, unspecified Qualifiers: Weeks of gestation: 11 weeks Qualified Code(s): Z3A.11 - 11 weeks gestation of Condition: Good Instructions: ED Dehydration, ED Care Follow-Up: Pricilla Caceres DO [Primary Care Provider] - Within 1 week Prescriptions: Metoclopramide [Reglan] 10 mg PO Q6H PRN #30 tablet PRN Reason: Nausea / Vomiting Comments: Return if you worsen. Drink plenty of fluids and rest. Discharge Date/Time: 05/27/18 21:05
[2018-05-27 18:48] LABS: BASOPHILS # (AUTO) 0.1 10^3/uL (0.0-0.1); BASOPHILS % (AUTO) 0.7 %; EOSINOPHILS % (AUTO) 0.5 %; HGB - HEMOGLOBIN 11.6 g/dL (12.0-16.0); LYMPHOCYTES # (AUTO) 2.1 10^3/uL (1.5-3.5); MEAN CORPUSCULAR HGB CONC 34.7 g/dL (32.0-36.0); MEAN CORPUSCULAR VOLUME 83.6 fL (81.0-99.0); MEAN PLATELET VOLUME 6.8 fL (7.9-10.8); MONOCYTES # (AUTO) 0.8 10^3/uL (0.0-1.0); MONOCYTES % (AUTO) 8.3 %; NEUTROPHILS # (AUTO) 6.6 10^3/uL (1.5-6.6); NEUTROPHILS % (AUTO) 68.5 %; PLT - PLATELET COUNT 248 10^3/uL (130-450); RED BLOOD COUNT 3.99 10^6/uL (4.20-5.40); RED CELL DISTRIBUTION WIDTH 12.4 % (12.0-15.0); WHITE BLOOD COUNT 9.6 x10^3/uL (4.8-10.8)
[2018-05-27 19:02] LABS: ALBUMIN 3.8 g/dL (3.2-5.5); ALBUMIN/GLOBULIN RATIO 1.2 (1.0-2.2); BILIRUBIN,TOTAL 0.7 mg/dL (0.2-1.0); CALCIUM 9.4 mg/dL (8.5-10.3); CREATININE 0.4 mg/dL (0.4-1.0); TOTAL PROTEIN 6.9 g/dL (6.7-8.2)
[2018-05-27] MEDS ORDERED: SODIUM CHLORIDE 0.9% 1,000 ML IV ONE (19:11)
[2018-05-27] MEDS ORDERED: METOCLOPRAMIDE 10 MG/2 ML VIAL IVP STA (19:42)
[2018-05-27 20:49] LABS: BILIRUBIN,URINE NEGATIVE (NEGATIVE); GLUCOSE, URINE (UA) NEGATIVE (NEGATIVE); KETONES,URINE (UA) 40 mg/dL (NEGATIVE); LEUKOCYTE ESTERASE, URINE NEGATIVE (NEGATIVE); NITRITE,URINE NEGATIVE (NEGATIVE); OCCULT BLOOD,URINE NEGATIVE (NEGATIVE); PROTEIN,URINE TRACE mg/dL (NEGATIVE); UROBILINOGEN,URINE 1 (NORMAL) E.U./dL (NORMAL)
[2018-05-27 20:51] LABS: CLARITY,URINE CLEAR (CLEAR)
[2018-05-27 21:06] VITALS: BP 108/62
== END 2018-05-27 21:05 | disposition home or self-care (01) ==
LOC: ED 17:27
DX: O21.1 Hyperemesis gravidarum with metabolic disturbance (principal); O30.001 Twin pregnancy, unspecified number of placenta and unspecified number of amniotic sacs, first trimester; O99.331 Smoking (tobacco) complicating pregnancy, first trimester; Z3A.11 11 weeks gestation of pregnancy
CPT/HCPCS: 36415; 80053; 81003; 83690; 85025; 96361; 96374; 99283; 99284; J2765; 81001; 87086

== ENCOUNTER 2018-07-06 11:56 | Outpatient (CLI) | payer MEDICAID ==
[2018-07-06 12:37] VITALS: BP 114/61
[2018-07-06 13:01] LABS: BILIRUBIN,URINE NEGATIVE (NEGATIVE); CLARITY,URINE CLEAR (CLEAR); GLUCOSE, URINE (UA) NEGATIVE (NEGATIVE); KETONES,URINE (UA) NEGATIVE (NEGATIVE); LEUKOCYTE ESTERASE, URINE NEGATIVE (NEGATIVE); NITRITE,URINE NEGATIVE (NEGATIVE); OCCULT BLOOD,URINE NEGATIVE (NEGATIVE); PROTEIN,URINE NEGATIVE (NEGATIVE); UROBILINOGEN,URINE 0.2 (NORMAL) E.U./dL (NORMAL)
== END 2018-07-06 12:55 | disposition home or self-care (01) ==
LOC: WFO 11:56 → FBP 11:58 → WFO 12:55
PROVIDERS: ATTEND Obstetrics & Gynecology
DX: O99.89 Other specified diseases and conditions complicating pregnancy, childbirth and the puerperium (principal); Z3A.19 19 weeks gestation of pregnancy
CPT/HCPCS: 81001; 81003; 87086; 99213

== ENCOUNTER 2018-07-06 12:57 | Emergency (ER) | payer MEDICAID ==
[2018-07-06 13:07] VITALS: BP 120/75
[2018-07-06] MEDS ORDERED: HYDROcod/ACETAM 5/325 MG TABLET PO STA (13:21)
--- NOTE | 2018-07-06 13:24 | ED Physician Documentation ---
PD HPI BACK PAIN - Stated complaint Stated Complaint: BACK PX/19 WKS - Chief complaint Chief Complaint: Back Pain - History obtained from History obtained from: Patient - History of Present Illness Timing - onset: Last night (22-year-old woman, at 19 weeks gestation with twins presents with back pain, across the back but mostly on the right side and radiating down both legs but mostly the right. 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 No fevers, numbness, tingling, or saddle anesthesia. No urinary complaints. She has chronic back pain from scoliosis but this feels different. She tried Tylenol without relief.) - Treatment prior to arrival Treatment prior to arrival: She was seen in OB prior to arrival and per report heart tones were okay. Review of Systems Ten Systems: 10 systems reviewed and negative Constitutional: denies: Fever, Chills GI: denies: Abdominal Pain, Nausea, Vomiting : denies: Dysuria, Frequency PD PAST MEDICAL HISTORY - Past Medical History Past Medical History: Yes Cardiovascular: None Respiratory: None Neuro: None Endocrine/Autoimmune: None SETTER OUT: None Psych: Depression, Anxiety Musculoskeletal: Scoliosis - Past Surgical History Past Surgical History: No - Present Medications Home Medications: Ambulatory Orders Medication Instructions Recorded Confirmed Pnv95/Ferrous Fumarate/FA 1 tab PO DAILY 05/04/18 05/27/18 [ Formula Tablet] Hydrocodone/Acetaminophen 1 - 2 each PO Q6H PRN #10 tablet 07/06/18 [Hydrocodon-Acetaminophen 5-325] - Allergies Allergies/Adverse Reactions: Allergies Allergy/AdvReac Type Severity Reaction Status Date / Time lactose Allergy Cramps Verified 07/06/18 13:07 - Social History Does the pt smoke?: Yes Smoking Status: Current every day smoker Does the pt drink ETOH?: Yes Does the pt have substance abuse?: No - Immunizations Immunizations are current?: Yes - POLST Patient has POLST: No PD ED PE NORMAL - Vitals Vital signs reviewed: Yes - General General: Alert and oriented X 3, No acute distress - Neck Neck: Supple, no meningeal sign, No bony TTP - Cardiac Cardiac: RRR, No murmur - Abdomen Abdomen: Normal bowel sounds, Soft, Non tender (Gravid) - Back Back: Other (No midline spinal tenderness, she is tender over the paralumbar muscles bilaterally especially on the right.) - Extremities Extremities: No edema, No calf tenderness / cord, Other (The patient has equal and normal Achilles and patellar reflexes bilaterally. Normal sensation in all areas of the legs. Patient denies saddle anesthesia. Normal strength in flexion-extension at the ankles, knees, and flexion of the hips.) - Neuro Neuro: Alert and oriented X 3, Normal speech Results - Vitals Vitals: Vital Signs - 24 hr 07/06/18 13:04 Temperature 36.4 C L Heart Rate 85 Respiratory 18 Rate Blood Pressure 120/75 O2 Saturation 100 Oxygen O2 Source Room air - Labs Labs: Laboratory Tests 07/06/18 07/06/18 13:30 13:30 WBC 9.4 RBC 3.41 L Hgb 10.3 L Hct 29.1 L MCV 85.1 MCH 30.1 MCHC 35.4 RDW 14.0 Plt Count 241 MPV 6.8 L Neut # (Auto) 7.6 H Lymph # (Auto) 1.2 L [place] # (Auto) 0.5 Eos # (Auto) 0.1 Baso # (Auto) 0.0 Absolute Nucleated RBC 0.00 Nucleated RBC % 0.0 Sodium 135 Potassium 3.6 Chloride 102 Carbon Dioxide 25 Anion Gap 8.0 BUN 6 Creatinine 0.4 Estimated GFR (MDRD) 200 Glucose 94 Calcium 8.9 Total Bilirubin 0.3 AST 24 ALT 28 Alkaline Phosphatase 45 Total Protein 6.3 L Albumin 3.2 Globulin 3.1 Albumin/Globulin Ratio 1.0 Lipase 32 PD MEDICAL DECISION MAKING - ED course ED course: 22-year-old woman 19 weeks with what seems like musculoskeletal back pain. Lab work and urinalysis are unremarkable. - Sepsis Event Vital Signs: Vital Signs - 24 hr 07/06/18 13:04 Temperature 36.4 C L Heart Rate 85 Respiratory 18 Rate Blood Pressure 120/75 O2 Saturation 100 Oxygen O2 Source Room air Departure - Departure Disposition: 01 Home, Self Care Clinical Impression: Back pain Qualifiers: Back pain location: low back pain Chronicity: acute Back pain laterality: bilateral Sciatica presence: without sciatica Qualified Code(s): M54.5 - Low back pain Condition: Good Record reviewed to determine appropriate education?: Yes Instructions: ED Low Back Pain Injury Prescriptions: Hydrocodone/Acetaminophen [Hydrocodon-Acetaminophen 5-325] 1 - 2 each PO Q6H PRN #10 tablet PRN Reason: pain Comments: As discussed, try to stick with just Tylenol for pain, you can take the hydrocodone as needed in addition to that if pain is severe. Do not drink or drive while taking that. Follow-up with your OB on as scheduled. Return for any new or worsening symptoms. Forms: Activity restrictions
[2018-07-06 13:39] LABS: BASOPHILS % (AUTO) 0.3 %; EOSINOPHILS # (AUTO) 0.1 10^3/uL (0.0-0.7); EOSINOPHILS % (AUTO) 0.6 %; HGB - HEMOGLOBIN 10.3 g/dL (12.0-16.0); LYMPHOCYTES # (AUTO) 1.2 10^3/uL (1.5-3.5); LYMPHOCYTES % (AUTO) 12.9 %; MEAN CORPUSCULAR HEMOGLOBIN 30.1 pg (27.0-31.0); MEAN CORPUSCULAR HGB CONC 35.4 g/dL (32.0-36.0); MEAN CORPUSCULAR VOLUME 85.1 fL (81.0-99.0); MEAN PLATELET VOLUME 6.8 fL (7.9-10.8); MONOCYTES # (AUTO) 0.5 10^3/uL (0.0-1.0); MONOCYTES % (AUTO) 5.5 %; NEUTROPHILS # (AUTO) 7.6 10^3/uL (1.5-6.6); NEUTROPHILS % (AUTO) 80.7 %; PLT - PLATELET COUNT 241 10^3/uL (130-450); RED BLOOD COUNT 3.41 10^6/uL (4.20-5.40); WHITE BLOOD COUNT 9.4 x10^3/uL (4.8-10.8)
[2018-07-06 13:48] LABS: ALBUMIN 3.2 g/dL (3.2-5.5); BILIRUBIN,TOTAL 0.3 mg/dL (0.2-1.0); CALCIUM 8.9 mg/dL (8.5-10.3); CREATININE 0.4 mg/dL (0.4-1.0); TOTAL PROTEIN 6.3 g/dL (6.7-8.2)
== END 2018-07-06 14:10 | disposition home or self-care (01) ==
LOC: ED 12:57
DX: O99.89 Other specified diseases and conditions complicating pregnancy, childbirth and the puerperium (principal); M54.5 Low back pain; M41.9 Scoliosis, unspecified; O30.002 Twin pregnancy, unspecified number of placenta and unspecified number of amniotic sacs, second trimester; O99.332 Smoking (tobacco) complicating pregnancy, second trimester; Z3A.19 19 weeks gestation of pregnancy; O26.892 Other specified pregnancy related conditions, second trimester; R10.9 Unspecified abdominal pain
CPT/HCPCS: 36415; 80053; 81003; 83690; 85025; 99213; 99283; A9270; 81001; 87086

== ENCOUNTER 2018-07-21 20:27 | Outpatient (CLI) | payer MEDICAID ==
[2018-07-21 20:40] VITALS: BP 124/77
[2018-07-21 21:26] LABS: BILIRUBIN,URINE NEGATIVE (NEGATIVE); GLUCOSE, URINE (UA) NEGATIVE (NEGATIVE); KETONES,URINE (UA) NEGATIVE (NEGATIVE); LEUKOCYTE ESTERASE, URINE NEGATIVE (NEGATIVE); NITRITE,URINE NEGATIVE (NEGATIVE); OCCULT BLOOD,URINE NEGATIVE (NEGATIVE); PROTEIN,URINE NEGATIVE (NEGATIVE); UROBILINOGEN,URINE 1 (NORMAL) E.U./dL (NORMAL)
[2018-07-21 21:37] LABS: BACTERIA,URINE None Seen /HPF (None Seen); CLARITY,URINE CLEAR (CLEAR); MUCUS,URINE Few Strands; RBC,URINE None Seen /HPF (0-5); SQUAMOUS EPITHELIAL CELL,UR RARE Squamous (<= Few)
--- NOTE | 2018-07-21 22:28 | PROVIDER PROGRESS NOTE ---
Subjective - Prog Note Date Prog Note Date: 07/21/18 Prog Note Time: 22:25 - Subjective Subjective: Ms. Augustin is a 22-year-old primigravida with twins at 21 weeks 2 days who reports periodic contractions beginning at 1900. The contractions are approxim ately every 10 minutes apart. They tend to alternate in intensity from the right side to the left side. There is no pelvic pressure or leakage of fluid. There is not been recent illness fever, vaginal discharge, or urinary tract infection signs. Her urinalysis tonight is negative for evidence of infection. She has been on the monitor for more than an hour and there are only rare contractions seen mostly in irritability pattern. Palpated 1 of the reported contractions and there was no uterine tightening. Heart tones are normal for 21 weeks for both twin A and twin B. Baseline cervical exam is closed thick and mid position. There is a whitish discharge on the glove suggestive of Naomie. She was instructed to push fluids and obtain Monistat for possible vaginitis. She is scheduled to see MFM this Saturday and return to our clinic in 2 weeks. Objective - Vital Signs/Intake & Output Vital Signs: Vital Signs x48h Temp Pulse Resp BP Pulse Ox 07/21/18 20:39 98.6 F 99 18 124/77 100 - Lab Results Other Labs: Lab Results x24hrs 07/21/18 Range/Units 20:30 Urine Color YELLOW Urine Clarity CLEAR (CLEAR) Urine pH 7.0 (5.0-7.5) PH Ur Specific [place] 1.020 (1.002-1.030) Urine Protein NEGATIVE (NEGATIVE) mg/dL Urine Glucose (UA) NEGATIVE (NEGATIVE) mg/dL Urine Ketones NEGATIVE (NEGATIVE) mg/dL Urine Occult Blood NEGATIVE (NEGATIVE) Urine Nitrite NEGATIVE (NEGATIVE) Urine Bilirubin NEGATIVE (NEGATIVE) Urine Urobilinogen 1 (NORMAL) (NORMAL) E.U./dL Ur Leukocyte Esterase NEGATIVE (NEGATIVE) Urine RBC None Seen (0-5) /HPF Urine WBC 0-3 (0-5) /HPF Ur Squamous Epith Cells RARE Squamous (<= Few) Urine Bacteria None Seen (None Seen) /HPF Urine Mucus Few Strands Urine Culture Comments NOT INDICATED
== END 2018-07-21 22:25 | disposition home or self-care (01) ==
LOC: WFO 20:27 → FBP 20:28 → WFO 22:25
PROVIDERS: ATTEND Obstetrics & Gynecology
DX: O30.002 Twin pregnancy, unspecified number of placenta and unspecified number of amniotic sacs, second trimester (principal); O26.92 Pregnancy related conditions, unspecified, second trimester; Z3A.21 21 weeks gestation of pregnancy
CPT/HCPCS: 81001; 87086; 99213

== ENCOUNTER 2018-08-08 20:55 | Outpatient (CLI) | payer MEDICAID ==
[2018-08-08 22:02] VITALS: BP 121/67
[2018-08-08 22:09] LABS: BILIRUBIN,URINE NEGATIVE (NEGATIVE); GLUCOSE, URINE (UA) NEGATIVE (NEGATIVE); KETONES,URINE (UA) NEGATIVE (NEGATIVE); LEUKOCYTE ESTERASE, URINE NEGATIVE (NEGATIVE); NITRITE,URINE NEGATIVE (NEGATIVE); OCCULT BLOOD,URINE NEGATIVE (NEGATIVE); PROTEIN,URINE NEGATIVE (NEGATIVE); UROBILINOGEN,URINE 0.2 (NORMAL) E.U./dL (NORMAL)
[2018-08-08 22:10] LABS: CLARITY,URINE CLEAR (CLEAR)
[2018-08-08 22:25] LABS: BACTERIA,URINE Rare /HPF (None Seen); RBC,URINE None Seen /HPF (0-5); SQUAMOUS EPITHELIAL CELL,UR MANY Squamous (<= Few)
== END 2018-08-08 23:45 | disposition home or self-care (01) ==
LOC: WFO 20:55 → FBP 20:58 → WFO 23:45
PROVIDERS: ATTEND Obstetrics & Gynecology
DX: O30.042 Twin pregnancy, dichorionic/diamniotic, second trimester (principal); O99.89 Other specified diseases and conditions complicating pregnancy, childbirth and the puerperium; R10.11 Right upper quadrant pain; Z3A.23 23 weeks gestation of pregnancy
CPT/HCPCS: 81001; 87086; 99213

== ENCOUNTER 2018-08-09 07:06 | Outpatient (CLI) | payer MEDICAID ==
--- NOTE | 2018-08-09 11:54 | Ultrasound Report ---
Reason: BACK PAIN, ABD PAIN, 23WKS 6 DAYS GESTATION-TWINS Procedure Date: 08/09/2018 Accession Number: [id number] / [id number] Procedure: US - Abdomen Limited CPT Code: FULL RESULT: EXAM: ABDOMEN ULTRASOUND LIMITED, RUQ EXAM DATE: 08/09/2018 07:55 AM. CLINICAL HISTORY: BACK PAIN, ABD PAIN, 23WKS 6 DAYS GESTATION-TWINS. COMPARISON: No abdominal comparison. TECHNIQUE: Real-time scanning was performed with static images obtained. FINDINGS: Liver: Normal in size and echotexture. 17 cm. Main portal vein flow: Hepatopetal. Gallbladder: Normal. No stones, wall thickening, or sonographic Nguyen's sign. Biliary System: CBD measures 2.6 mm. No intrahepatic or extrahepatic ductal dilatation. Other: Right kidney measures 12.8 cm in length and demonstrates mild to moderate hydronephrosis. Twin gestation demonstrated with fetus A on the maternal right having a heart rate of 123 bpm and fetus B on the left 142 bpm. IMPRESSION: 1. No cholelithiasis or cholecystitis. 2. Mild to moderate right hydronephrosis. 3. Twin gestation redemonstrated, but not evaluated on this exam. RADIA
== END 2018-08-09 07:07 | disposition home or self-care (01) ==
LOC: DI 07:06
PROVIDERS: ATTEND Obstetrics & Gynecology
DX: O99.89 Other specified diseases and conditions complicating pregnancy, childbirth and the puerperium (principal); R10.9 Unspecified abdominal pain; M54.9 Dorsalgia, unspecified; N13.30 Unspecified hydronephrosis; O30.002 Twin pregnancy, unspecified number of placenta and unspecified number of amniotic sacs, second trimester; Z3A.23 23 weeks gestation of pregnancy
CPT/HCPCS: 76705

== ENCOUNTER 2018-08-30 12:16 | Outpatient (CLI) | payer MEDICAID ==
[2018-08-30 13:32] VITALS: BP 114/61
== END 2018-08-30 14:05 | disposition home or self-care (01) ==
LOC: WFO 12:16 → FBP 12:18 → WFO 14:05
PROVIDERS: ATTEND Obstetrics & Gynecology
DX: O99.89 Other specified diseases and conditions complicating pregnancy, childbirth and the puerperium (principal); M54.9 Dorsalgia, unspecified; O30.002 Twin pregnancy, unspecified number of placenta and unspecified number of amniotic sacs, second trimester; Z3A.27 27 weeks gestation of pregnancy
CPT/HCPCS: 99214

== ENCOUNTER 2018-09-14 14:21 | Emergency (ER) | payer MEDICAID ==
[2018-09-14 14:31] VITALS: BP 125/74
--- NOTE | 2018-09-14 14:55 | ED Physician Documentation ---
<Delroy Brar - Last Filed: 09/14/18 14:55> History of Present Illness - Stated complaint Stated Complaint: WEAK/29 WKS - Chief complaint Chief Complaint: General - History obtained from History obtained from: Patient - Additonal information Additional information: 23-year-old female who is 29 weeks with twins has developed weakness today and fatigue. She does not have other specific symptoms she states she has felt this way one time previously took some juice and felt improved. She does have some pain between her shoulder blades. She has not otherwise been sick other people in her house have been sick with viral URI. 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 Psych: Depression, Anxiety Musculoskeletal: Scoliosis - Past Surgical History Past Surgical History: No - Present Medications Home Medications: Ambulatory Orders Medication Instructions Recorded Confirmed Pnv95/Ferrous Fumarate/FA 1 tab PO DAILY 05/04/18 05/27/18 [ Formula Tablet] Hydrocodone/Acetaminophen 1 - 2 each PO Q6H PRN #10 tablet 07/06/18 [Hydrocodon-Acetaminophen 5-325] - Allergies Allergies/Adverse Reactions: Allergies Allergy/AdvReac Type Severity Reaction Status Date / Time lactose Allergy Cramps Verified 09/14/18 14:31 - Social History Does the pt smoke?: Yes Smoking Status: Current every day smoker Does the pt drink ETOH?: Yes Does the pt have substance abuse?: No - Immunizations Immunizations are current?: Yes - POLST Patient has POLST: No Results - Vitals Vitals: Vital Signs - 24 hr 09/14/18 14:28 Temperature 36.0 C L Heart Rate 116 H Respiratory 15 Rate Blood Pressure 125/74 O2 Saturation 97 Oxygen O2 Source Room air - EKG (time done) 1446 Rate: Rate (enter#) (117) Rhythm: Sinus tachycardia [place]: Normal Intervals: Normal [place] QRS: Normal Ischemia: Normal ST segments - Labs Labs: Laboratory Tests 09/14/18 09/14/18 09/14/18 14:54 15:10 15:10 WBC 12.9 H RBC 3.44 L Hgb 9.5 L Hct 28.8 L MCV 83.7 MCH 27.6 MCHC 32.9 RDW 13.8 Plt Count 328 MPV 6.8 L Neut # (Auto) 10.1 H Lymph # (Auto) 1.8 Miller # (Auto) 0.8 Eos # (Auto) 0.1 Baso # (Auto) 0.1 Absolute Nucleated RBC 0.01 Nucleated RBC % 0.1 Sodium 135 Potassium 3.6 Chloride 105 Carbon Dioxide 23 Anion Gap 7.0 BUN 8 Creatinine 0.4 Estimated GFR (MDRD) 198 Glucose 90 POC Whole Bld Glucose 91 Calcium 9.1 Total Bilirubin 0.4 AST 30 ALT 12 Alkaline Phosphatase 87 Troponin I Total Protein 6.6 L Albumin 3.2 Globulin 3.4 Albumin/Globulin Ratio 0.9 L Lipase 34 Urine Color Urine Clarity Urine pH Ur Specific [place] Urine Protein Urine Glucose (UA) Urine Ketones Urine Occult Blood Urine Nitrite Urine Bilirubin Urine Urobilinogen Ur Leukocyte Esterase Ur Microscopic Review Urine Culture Comments 09/14/18 09/14/18 15:10 16:35 WBC RBC Hgb Hct MCV MCH MCHC RDW Plt Count MPV Neut # (Auto) Lymph # (Auto) Miller # (Auto) Eos # (Auto) Baso # (Auto) Absolute Nucleated RBC Nucleated RBC % Sodium Potassium Chloride Carbon Dioxide Anion Gap BUN Creatinine Estimated GFR (MDRD) Glucose POC Whole Bld Glucose Calcium Total Bilirubin AST ALT Alkaline Phosphatase Troponin I < 0.04 Total Protein Albumin Globulin Albumin/Globulin Ratio Lipase Urine Color YELLOW Urine Clarity CLEAR Urine pH 7.5 Ur Specific [place] 1.020 Urine Protein NEGATIVE Urine Glucose (UA) NEGATIVE Urine Ketones NEGATIVE Urine Occult Blood NEGATIVE Urine Nitrite NEGATIVE Urine Bilirubin NEGATIVE Urine Urobilinogen 0.2 (NORMAL) Ur Leukocyte Esterase NEGATIVE Ur Microscopic Review NOT INDICATED Urine Culture Comments NOT INDICATED PD MEDICAL DECISION MAKING - ED course ED course: 23 y/o female 23 weeks with twins has developed weakness today. She does not appear otherwise ill. Her blood work is unremarkable with the exception of a mild leukocytosis. Exam does not reveal any obvious infectious source of weakness. She arrives to the ED tachycardic and she is found to be dehydrated on interrogation of the IVC estimated at 1-2 liters deficit. Saline is begun. Departure - Departure Disposition: 01 Home, Self Care Clinical Impression: Dehydration Condition: Stable Instructions: ED Dehydration Follow-Up: Tosin Burt MD [Primary Care Provider] - <Nasir Barfield - Last Filed: 09/14/18 18:07> History of Present Illness - History obtained from History obtained from: Patient, Family - History of Present Illness Timing: Today - Additonal information Additional information: 23-year-old female who is 29 weeks with twins has developed weakness today and fatigue. She does not have other specific symptoms she states she has felt this way one time previously took some juice and felt improved. She does have some pain between her shoulder blades. She has not otherwise been sick other people in her house have been sick with viral URI. Review of Systems Constitutional: reports: Fatigue. denies: Fever, Chills, Myalgias, Sweats Eyes: denies: Decreased vision Ears: denies: Ear pain Nose: denies: Rhinorrhea / runny nose, Congestion Throat: denies: Sore throat Cardiac: denies: Chest pain / pressure, Palpitations Respiratory: reports: Dyspnea. denies: Cough, Wheezing GI: denies: Abdominal Pain, Nausea, Vomiting, Constipation, Diarrhea : denies: Dysuria, Frequency Skin: denies: Rash Musculoskeletal: reports: Back pain. denies: Neck pain, Extremity pain Neurologic: denies: Generalized weakness, Focal weakness, Numbness PD ED PE NORMAL - Vitals Vital signs reviewed: Yes (tachy) - General General: Alert and oriented X 3, No acute distress, Well developed/nourished - HEENT HEENT: Atraumatic, PERRL, EOMI, Ears normal, Moist mucous membranes, Pharynx benign, Dentition benign - Neck Neck: Supple, no meningeal sign, No bony TTP - Cardiac Cardiac: No murmur, Other (tachy) - Respiratory Respiratory: No respiratory distress, Clear bilaterally - Abdomen Abdomen: Soft, Non tender, Other (gravid uterus non-tender to just under the xyphoid) - Back Back: No CVA TTP, No spinal TTP - Derm Derm: Normal color, Warm and dry, No rash - Extremities Extremities: No deformity, No edema - Neuro Neuro: Alert and oriented X 3, 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 tech 2-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, No motor deficit, No sensory deficit, Normal speech Eye Opening: Spontaneous Motor: Obeys Commands Verbal: Oriented GCS Score: 15 - Psych Psych: Normal mood, Normal affect Results - Vitals Vitals: Vital Signs - 24 hr 09/14/18 14:28 Temperature 36.0 C L Heart Rate 116 H Respiratory 15 Rate Blood Pressure 125/74 O2 Saturation 97 Oxygen O2 Source Room air - EKG (time done) 1446 Rate: Rate (enter#) Rhythm: Sinus tachycardia Ischemia: Normal ST segments Compare to prior EKG: Changed from prior EKG (SPT 18 rate has increased) Computer interpretation: Agree with computer Procedures - IVC sono (time) 1620 Bedside IVC sono: IVC measures (cm) (1.09), IVC collapsed c insp (cm) (complete), Dehydration (est 1-2 liter deficit) PD MEDICAL DECISION MAKING - ED course Complexity details: reviewed old records, reviewed results, re-evaluated patient, considered differential, d/w patient, d/w family ED course: 23 y/o female 23 weeks with twins has developed weakness today. She does not appear otherwise ill. Her blood work is unremarkable with the exception of a mild leukocytosis. Exam does not reveal any obvious infectious source of weakness. She arrives to the ED tachycardic and she is found to be dehydrated on interrogation of the IVC estimated at 1-2 liters deficit. Saline is begun. She has unremarkable urine and she is diagnosed with dehydration and improves with hydration and she is discharged from the ED to be monitored in L&D now.
[2018-09-14 15:18] LABS: BASOPHILS # (AUTO) 0.1 10^3/uL (0.0-0.1); BASOPHILS % (AUTO) 0.5 %; EOSINOPHILS # (AUTO) 0.1 10^3/uL (0.0-0.7); EOSINOPHILS % (AUTO) 0.7 %; HGB - HEMOGLOBIN 9.5 g/dL (12.0-16.0); LYMPHOCYTES # (AUTO) 1.8 10^3/uL (1.5-3.5); LYMPHOCYTES % (AUTO) 13.7 %; MEAN CORPUSCULAR HEMOGLOBIN 27.6 pg (27.0-31.0); MEAN CORPUSCULAR HGB CONC 32.9 g/dL (32.0-36.0); MEAN CORPUSCULAR VOLUME 83.7 fL (81.0-99.0); MEAN PLATELET VOLUME 6.8 fL (7.9-10.8); MONOCYTES # (AUTO) 0.8 10^3/uL (0.0-1.0); MONOCYTES % (AUTO) 6.4 %; NEUTROPHILS # (AUTO) 10.1 10^3/uL (1.5-6.6); NEUTROPHILS % (AUTO) 78.7 %; PLT - PLATELET COUNT 328 10^3/uL (130-450); RED BLOOD COUNT 3.44 10^6/uL (4.20-5.40); RED CELL DISTRIBUTION WIDTH 13.8 % (12.0-15.0); WHITE BLOOD COUNT 12.9 x10^3/uL (4.8-10.8)
[2018-09-14 15:30] LABS: ALBUMIN 3.2 g/dL (3.2-5.5); ALBUMIN/GLOBULIN RATIO 0.9 (1.0-2.2); BILIRUBIN,TOTAL 0.4 mg/dL (0.2-1.0); CALCIUM 9.1 mg/dL (8.5-10.3); CREATININE 0.4 mg/dL (0.4-1.0); TOTAL PROTEIN 6.6 g/dL (6.7-8.2)
[2018-09-14] MEDS ORDERED: SODIUM CHLORIDE 0.9% 1,000 ML IV ONE (16:25)
[2018-09-14 16:38] LABS: BILIRUBIN,URINE NEGATIVE (NEGATIVE); GLUCOSE, URINE (UA) NEGATIVE (NEGATIVE); KETONES,URINE (UA) NEGATIVE (NEGATIVE); LEUKOCYTE ESTERASE, URINE NEGATIVE (NEGATIVE); NITRITE,URINE NEGATIVE (NEGATIVE); OCCULT BLOOD,URINE NEGATIVE (NEGATIVE); PH,URINE 7.5 PH (5.0-7.5); PROTEIN,URINE NEGATIVE (NEGATIVE); UROBILINOGEN,URINE 0.2 (NORMAL) E.U./dL (NORMAL)
[2018-09-14 16:47] LABS: CLARITY,URINE CLEAR (CLEAR)
== END 2018-09-14 17:05 | disposition home or self-care (01) ==
LOC: ED 14:21
DX: O99.283 Endocrine, nutritional and metabolic diseases complicating pregnancy, third trimester (principal); E86.0 Dehydration; O26.893 Other specified pregnancy related conditions, third trimester; R00.0 Tachycardia, unspecified; O99.333 Smoking (tobacco) complicating pregnancy, third trimester; Z3A.29 29 weeks gestation of pregnancy; Z34.03 Encounter for supervision of normal first pregnancy, third trimester
CPT/HCPCS: 36415; 59025; 80053; 81001; 81003; 83690; 84484; 85025; 87086; 93005; 99283

== ENCOUNTER 2018-09-14 17:21 | Outpatient (CLI) | payer MEDICAID ==
[2018-09-14 18:34] VITALS: BP 122/71
== END 2018-09-14 18:30 | disposition home or self-care (01) ==
LOC: WFO 17:21 → FBP 18:09 → WFO 18:30
PROVIDERS: ATTEND Obstetrics & Gynecology
DX: Z34.03 Encounter for supervision of normal first pregnancy, third trimester (principal)
CPT/HCPCS: 59025

== ENCOUNTER 2019-03-27 14:58 | Emergency (ER) | payer MEDICAID ==
[2019-03-27 15:20] VITALS: BP 124/56
--- NOTE | 2019-03-27 15:36 | ED Physician Documentation ---
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 She has had about a week's worth of bilateral frontal sinus pressure, headaches that are worse when bending over and low-grade fevers as well as congestion and sore throat. No cough.) Review of Systems Constitutional: reports: Fever, Fatigue. 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 Psych: Depression, Anxiety Musculoskeletal: Scoliosis - Past Surgical History Past Surgical History: No - Present Medications Home Medications: Ambulatory Orders Medication Instructions Recorded Confirmed Amox/Clav 875/125 [Augmentin] 1 each PO Q12H #20 tablet 03/27/19 Ondansetron Odt [Zofran] 4 mg TL Q6H PRN #10 tablet 03/27/19 - Allergies Allergies/Adverse Reactions: Allergies Allergy/AdvReac Type Severity Reaction Status Date / Time lactose Allergy Cramps Verified 03/27/19 15:18 - Social History Does the pt smoke?: Yes Smoking Status: Current every day smoker Does the pt drink ETOH?: Yes Does the pt have substance abuse?: No - Immunizations Immunizations are current?: Yes - POLST Patient has POLST: No PD ED PE NORMAL - Vitals Vital signs reviewed: Yes - General General: Alert and oriented X 3, No acute distress - HEENT HEENT: PERRL, EOMI, Ears normal, Other (Oropharynx is normal. 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, Normal speech - Psych Psych: Normal mood, Normal affect Results - Vitals Vitals: Vital Signs - 24 hr 03/27/19 15:16 Temperature 36.4 C L Heart Rate 79 Respiratory 16 Rate Blood Pressure 124/56 L O2 Saturation 98 Oxygen O2 Source Room air Departure - Departure Disposition: 01 Home, Self Care Clinical Impression: Sinusitis Qualifiers: Sinusitis location: maxillary Chronicity: acute Recurrence: recurrent Qualified Code(s): J01.01 - Acute recurrent maxillary sinusitis Condition: Good Record reviewed to determine appropriate education?: Yes Instructions: ED Sinusitis Abx Tx Prescriptions: Amox/Clav 875/125 [Augmentin] 1 each PO Q12H #20 tablet Ondansetron Odt [Zofran] 4 mg TL Q6H PRN #10 tablet PRN Reason: Nausea / Vomiting Comments: Return for new or worsening symptoms. Tylenol as needed for pain and you can take Mucinex [id number]. As discussed avoid Sudafed. Recheck with your doctor in a week if not better.
== END 2019-03-27 15:55 | disposition home or self-care (01) ==
LOC: ED 14:58
DX: J01.01 Acute recurrent maxillary sinusitis (principal); F17.200 Nicotine dependence, unspecified, uncomplicated
CPT/HCPCS: 99283

== ENCOUNTER 2019-04-24 10:05 | Emergency (ER) | payer MEDICAID ==
[2019-04-24] MEDS ORDERED: IBUPROFEN 800 MG TABLET PO STA (10:34)
--- NOTE | 2019-04-24 11:38 | ED Physician Documentation ---
PD HPI URI - Stated complaint Stated Complaint: SINUS ISSUES - Chief complaint Chief Complaint: Heent - History obtained from History obtained from: Patient - History of Present Illness Timing - onset: How many days ago (2) Timing duration: Days (2) Timing details: Still present Associated symptoms: Fever, Nasal congestion, Sore throat, Dry cough Contributing factors: Sick contact (Twin daughters have similar symptoms.) - Additional information Additional information: the patient is a 23-year-old female who presents with fever, congestion, sore throat, myalgias, nonproductive cough, and global headache. Her symptoms started 2 days ago and are persistent. She has twin daughters who are sick with upper respiratory infections. She denies abdominal pain, vomiting or diarrhea. Review of Systems Constitutional: reports: Fever, Myalgias Eyes: denies: Irritation Ears: denies: Ear pain Nose: reports: Congestion Throat: reports: Sore throat Cardiac: denies: Chest pain / pressure Respiratory: reports: Cough. denies: Dyspnea GI: denies: Abdominal Pain, Nausea, Vomiting : denies: Dysuria Skin: denies: Rash Musculoskeletal: denies: Back pain Neurologic: reports: Headache. 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 Psych: Depression, Anxiety Musculoskeletal: Scoliosis - Past Surgical History Past Surgical History: No - Present Medications Home Medications: Ambulatory Orders Medication Instructions Recorded Confirmed Amox/Clav 875/125 [Augmentin] 1 each PO Q12H #20 tablet 03/27/19 Ondansetron Odt [Zofran] 4 mg TL Q6H PRN #10 tablet 03/27/19 Benzonatate [Tessalon Perle] 100 - 200 mg PO TID PRN #30 capsule 04/24/19 - Allergies Allergies/Adverse Reactions: Allergies Allergy/AdvReac Type Severity Reaction Status Date / Time lactose Allergy Cramps Verified 04/24/19 10:11 - Social History Does the pt smoke?: Yes Smoking Status: Current every day smoker Does the pt drink ETOH?: Yes Does the pt have substance abuse?: No - Immunizations Immunizations are current?: Yes - POLST Patient has POLST: No PD ED PE NORMAL - Vitals Vital signs reviewed: Yes (normal) - General General: Alert and oriented X 3, Well developed/nourished, Other (Sounds con gested when speaking.) - HEENT HEENT: Atraumatic, EOMI, Ears normal, Pharynx benign - Neck Neck: Supple, no meningeal sign, No adenopathy - Cardiac Cardiac: RRR - Respiratory Respiratory: No respiratory distress, Clear bilaterally - Abdomen Abdomen: Soft, Non tender - Back Back: No CVA TTP - Derm Derm: No rash - Extremities Extremities: No edema, No calf tenderness / cord - Neuro Neuro: Alert and oriented X 3, No motor deficit, Normal speech Results - Vitals Vitals: Oxygen O2 Source Room air - Labs Labs: Laboratory Tests 04/24/19 10:53 Influenza A (Rapid) Negative Influenza B (Rapid) Negative PD MEDICAL DECISION MAKING - ED course Complexity details: reviewed results, re-evaluated patient, considered differential, d/w patient ED course: The patient's presentation is most consistent with viral upper respiratory infection. Her clinical presentation does not suggest meningitis, pneumonitis, otitis media, or acute pharyngitis. Influenza swab is negative. Treatment in the emergency department included Ibuprophen 800 mg orally. I discussed with her the expected course of illness, symptomatic treatment and outpatient follow-up, as well as potentially worrisome signs or symptoms that should prompt reevaluation in the emergency department. Departure - Departure Disposition: 01 Home, Self Care Clinical Impression: Viral URI with cough Condition: Stable Instructions: ED URI Viral Follow-Up: Tosin Burt MD [Primary Care Provider] - Prescriptions: Benzonatate [Tessalon Perle] 100 - 200 mg PO TID PRN #30 capsule PRN Reason: Cough Comments: Your symptoms are most consistent with a viral upper respiratory infection. Antibiotics are not clinically indicated for this type of viral infection. Treatment should be geared toward managing symptoms: Drink plenty of fluids. Use Tylenol or ibuprofen as needed for fever or discomfort. Wash your hands frequently, and cover your cough. Follow up with your primary physician, or return to the emergency department, if not improving within 1-2 weeks. Return to the emergency department if you develop increasing difficulty breathing, or otherwise worsening symptoms. Discharge Date/Time: 04/24/19 12:00
[2019-04-24 11:57] VITALS: BP 114/69
== END 2019-04-24 12:00 | disposition home or self-care (01) ==
LOC: ED 10:05
DX: J06.9 Acute upper respiratory infection, unspecified (principal); F17.200 Nicotine dependence, unspecified, uncomplicated
CPT/HCPCS: 87275; 87276; 99283; A9270